=== PATIENT | female | born 1940 | race Asian ===

== ENCOUNTER 2018-07-17 16:44 | Inpatient (IN) | payer OTHER ==
--- NOTE | 2018-07-17 17:50 | RAD REPORT ---
EXAM DESCRIPTION: Alex Single View07/17/2018 5:43 pm CLINICAL HISTORY: COUGH COMPARISON: 2010 FINDINGS: The lungs appear clear of acute infiltrate. The heart is normal size IMPRESSION: No acute abnormalities displayed
[2018-07-17 18:18] LABS: Protime INR 0.91
[2018-07-17] MEDS ORDERED: FENTANYL CITR 100 MCG/2 ML ONE (18:30)
[2018-07-17] MEDS ORDERED: ONDANSETRON 4 MG/2 ML VIAL ONE ×2 (18:30→18:32)
[2018-07-17] MEDS ORDERED: KETOROLAC 30 MG/ML INJ ONE (18:30)
[2018-07-17 18:33] LABS: Absolute Lymphocytes (CBC) 2.1 K/uL (0.7-4.9); Absolute Monocytes 0.6 K/uL (0.1-1.3); Absolute Neutrophil 3.7 K/uL (1.8-8.0); Basophils % 0.9 % (0-1.3); Eosinophils % 9.9 % (0-4.4); Hematocrit 45.6 % (36.0-45.0); Lymphocytes % 29.5 % (15.3-44.8); MCH 30.2 pg (27.0-35.0); MCV 90.9 fL (80-100); MPV 8.5 fL (7.6-11.3); Monocytes % 8.5 % (3.3-12.3); RBC Red Blood Cell Count 5.02 M/uL (3.86-4.86)
--- NOTE | 2018-07-17 18:38 | RAD REPORT ---
EXAM DESCRIPTION: RAD - Shoulder Left 2 View - 07/17/2018 6:27 pm CLINICAL HISTORY: Left shoulder pain FINDINGS: No fracture or dislocation is seen. The bones are osteoporotic. Moderate osteoarthritis involves the acromioclavicular joint consisting of osteophytes and joint spac e narrowing
[2018-07-17 18:41] LABS: ALT/SGPT 18 U/L (12-78); AST/SGOT 18 U/L (15-37); Albumin 3.4 g/dL (3.4-5.0); Alkaline Phosphatase 68 U/L (45-117); BUN Blood Urea Nitrogen 16 mg/dL (7-18); Bicarbonate 29 mmol/L (21-32); Bilirubin Direct < 0.1 mg/dL (0-0.2); Bilirubin Total 0.4 mg/dL (0.2-1.0); CKMB Creatine Kinase MB 1.2 ng/mL (0.3-3.6); Creatine Phosphokinase 80 U/L (26-192); Glucose Level 144 mg/dL (74-106); Lipase 231 U/L (73-393); NT PRO-BNP 272 pg/mL (<450); Potassium 3.7 mmol/L (3.5-5.1); Protein, Total 7.3 g/dL (6.4-8.2); Sodium Level 143 mmol/L (136-145); Troponin (Emerg Dept Use Only) 0.08 ng/mL (0.0-0.045)
[2018-07-17] MEDS ORDERED: HYDRALAZINE HCL 10 MG TABLET ONE (18:55)
[2018-07-17] MEDS ORDERED: HYDRALAZINE HCL 20 MG/ML VIAL ONE (18:55)
--- NOTE | 2018-07-17 19:07 | ER ---
Nurse's Notes [facility] Name: Nyla Hernandez Age: 77 yrs Sex: Female : 1940 Arrival Date: 07/17/2018 Time: 16:47 Bed 24 Private MD: Nigel Beyer V Diagnosis: Essential (primary) hypertension;Pain in left shoulder Presentation: 07/17 16:58 Presenting complaint: Patient states: She has been having pain in her left shoulder for aj1 the past 2 weeks. States that she had a steroid injection Friday in that shoulder but it didn't help. She had a MRI done today, but Dr. Beyer's office closed before she could get the results. She checked her blood pressure at home and it was 190/96. Transition of care: patient was not received from another setting of care. Onset of symptoms was June 2018. Risk Assessment: Do you want to hurt yourself or someone else? Patient reports no desire to harm self or others. Initial Sepsis Screen: Does the patient meet any 2 criteria? No. Patient's initial sepsis screen is negative. Does the patient have a suspected source of infection? No. Patient's initial sepsis screen is negative. Care prior to arrival: None. 16:58 Method Of Arrival: Ambulatory aj1 16:58 Acuity: KADEN 4 aj1 Triage Assessment: 17:03 General: Appears in no apparent distress. comfortable, Behavior is calm, cooperative, aj1 appropriate for age. Pain: Complains of pain in anterior aspect of left shoulder and posterior aspect of left shoulder Pain currently is 10 out of 10 on a pain scale. Neuro: Level of Consciousness is awake, alert, obeys commands. Cardiovascular: Patient's skin is warm and dry. Respiratory: Airway is patent Respiratory effort is even, unlabored, Respiratory pattern is regular, symmetrical. Musculoskeletal: Range of motion: limited in left shoulder. Historical: - Allergies: 17:05 QUINOLONES; aj1 17:05 Ciprofloxacin; aj1 17:05 Levaquin; aj1 17:05 PHENOTHIAZINES; aj1 17:05 Flagyl; aj1 - Home Meds: 17:03 irbesartan 300 mg oral tab 1 tab once daily [Active]; spironolactone 25 mg Oral tab 1 aj1 tab once daily [Active]; pravastatin 40 mg oral tab 1 tab once daily [Active]; - PMHx: 17:03 Hypertension; Hyperlipidemia; aj1 - PSHx: 17:03 breast augmentation; foot surgery; aj1 - Immunization history:: Flu vaccine is up to date. - Social history:: Smoking status: Patient/guardian denies using tobacco. - Ebola Screening: : Patient denies travel to an Ebola-affected area in the 21 days before illness onset. - Family history:: not pertinent. Screenin:35 Abuse screen: Denies threats or abuse. Denies injuries from another. Nutritional aj screening: No deficits noted. Tuberculosis screening: No symptoms or risk factors identified. Fall Risk None identified. Assessment: 17:35 General: Appears in no apparent distress. comfortable, Behavior is calm, cooperative, aj appropriate for age. Pain: Complains of pain in anterior aspect of left shoulder and posterior aspect of left shoulder. Neuro: Level of Consciousness is awake, alert, obeys commands, Oriented to person, place, time, situation, Appropriate for age. Respiratory: Airway is patent Respiratory effort is even, unlabored, Respiratory pattern is regular, symmetrical. Derm: Skin is intact, is healthy with good turgor, Skin is pink, warm \T\ dry. normal. Musculoskeletal: Capillary refill < 3 seconds, in bilateral fingers. Range of motion: intact in all extremities, Reports pain in anterior aspect of left shoulder and posterior aspect of left shoulder. 19:15 Reassessment: Patient and/or family updated on plan of care and expected duration. Pain cr4 level reassessed. Patient is alert, oriented x 3, equal unlabored respirations, skin warm/dry/pink. Patient states feeling better. 20:07 Reassessment: Patient and/or family updated on plan of care and expected duration. Pain cr4 level reassessed. Pain: Complains of pain in chest and left elbow. Pain currently is 5 out of 10 on a pain scale. Quality of pain is described as aching. Cardiovascular: Heart tones S1 S2 Rhythm is regular. Respiratory: Reports shortness of breath at rest since coming back from bathroom. Breath sounds are clear. 20:30 Reassessment: Patient states feeling better. Patient states symptoms have improved. cr4 Respiratory: Denies shortness of breath at rest, on exertion, labored breathing. Vital Signs: 17:03 BP 188 / 62; Pulse 69; Resp 18; Temp 97.8; Pulse Ox 96% on R/A; Weight 59.87 kg (R); aj1 Height 4 ft. 10 in. (147.32 cm); Pain 10/10; 17:35 BP 173 / 72; Pulse 63; Resp 15; Pulse Ox 96% on R/A; aj 18:53 BP 211 / 78; Pulse 58; Resp 20; Pulse Ox 95% on R/A; aj 19:26 BP 216 / 82; Pulse 64; Resp 18; Pulse Ox 99% ; Pain 3/10; cr4 19:36 BP 190 / 72; Pulse 66; Resp 16; Pulse Ox 99% ; Pain 3/10; cr4 19:50 BP 168 / 64; Pulse 65; Resp 16; Pulse Ox 99% ; Pain 3/10; cr4 20:07 BP 188 / 64; Pulse 70; Resp 18; Pulse Ox 99% ; Pain 5/10; cr4 21:00 BP 143 / 64; Pulse 66; Resp 16; Temp 97.8; Pulse Ox 100% ; Pain 3/10; cr4 17:03 Body Mass Index 27.59 (59.87 kg, 147.32 cm) aj1 ED Course: 16:47 Patient arrived in ED. mr 16:47 Nigel Beyer MD is Private Physician. mr 17:01 Triage completed. aj1 17:03 Arm band placed on Patient placed in an exam room. aj1 17:28 Fatmata Salvaodr, RN is Primary Nurse. aj 17:30 John Cardoso MD is Attending Physician. yosef 17:35 Patient has correct armband on for positive identification. Placed in gown. Bed in low aj position. Call light in reach. Side rails up X 1. Adult w/ patient. 17:35 Pulse ox on. NIBP on. aj 17:43 XRAY Chest (1 view) In Process Unspecified. EDMS 17:46 EKG done, by senior technologist. dt2 17:59 Missed attempt(s): 22 gauge in right forearm. Bleeding controlled, band aid applied, aj catheter tip intact. 18:07 Inserted saline lock: 20 gauge in right antecubital area, using aseptic technique. rv 18:22 X-ray completed. Portable x-ray completed in exam room. Patient tolerated procedure az well. 18:24 Radiology exam delayed due to lab results not completed at this time. (BUN/Creatinine). vm2 18:27 Shoulder Left (2 View) XRAY In Process Unspecified. EDMS 18:[address] vr 19:04 CT Aorta for Dissection In Process Unspecified. EDMS 19:06 Nigel Beyer MD is Hospitalizing Provider. yosef 20:15 No provider procedures requiring assistance completed. Patient admitted, IV remains in cr4 place. Administered Medications: 18:33 Drug: TORadol 30 mg Route: IVP; Site: right antecubital; rv 18:33 Drug: fentaNYL (PF) 25 mcg Route: IVP; Site: right antecubital; rv 18:33 Drug: Zofran 4 mg Route: IVP; Site: right antecubital; rv 18:45 Drug: fentaNYL (PF) 25 mcg Route: IVP; Site: right antecubital; rv 19:24 Drug: hydrALAZINE 10 mg Route: PO; cr4 19:58 Follow up: Response: Blood pressure is lowered cr4 19:24 Drug: hydrALAZINE 10 mg Route: IV; Rate: per protocol; Site: right antecubital; cr4 19:57 Follow up: Response: Blood pressure is lowered cr4 19:25 Drug: Lovenox 1 mg/kg Route: Sub-Q; Site: abdomen; cr4 19:58 Follow up: Response: No adverse reaction cr4 19:57 Not Given (bp lower Dr. Hill ordered to hold for now.): Lopressor (metoprolol cr4 TARTRATE) 50 mg PO once 20:35 Drug: NS 0.9% 1000 ml Route: IV; Rate: 75 ml/hr; Site: right antecubital; cr4 21:36 Follow up: IV Status: Infusion continued upon transfer; IV Intake: 200ml cr4 Intake: 21:36 IV: 200ml; Total: 200ml. cr4 Outcome: 19:07 Decision to Hospitalize by Provider. yosef 21:15 Patient left the ED. cr4 21:15 Admitted to Tele accompanied by nurse, family with patient, via wheelchair, room 421, cr4 with chart, Report called to Alfredo 21:15 Condition: improved 21:15 Instructed on the need for admit. Signatures: Dispatcher [employer] EDKayla Nicole RN RN Fatmata Mo RN RN aj Anderson, Corey, MD MD cha Rivera Hannah mr Jeremy, Rita, RN RN cr4 Wei, Leatha Patel2 Vero Torre2 Bipin Duong, BLAS RN Heather Bhat
--- NOTE | 2018-07-17 19:07 | EDPHYS ---
Physician Documentation [facility] Name: Nyla Hernandez Age: 77 yrs Sex: Female : 1940 Arrival Date: 07/17/2018 Time: 16:47 Bed 24 Private MD: Nigel Beyer V ED Physician Jhon Cardoso HPI: 07/17 18:01 This 77 yrs old Female presents to ER via Ambulatory with complaints of High yosef Blood Pressure, Shoulder Pain. 18:01 The patient has elevated blood pressure and discovered this at home. Onset: The yosef symptoms/episode began/occurred 14 day(s) ago. Modifying factors: The symptoms are aggravated by activity, movement, The symptoms are alleviated by remaining still. Associated signs and symptoms: The patient has no apparent associated signs or symptoms. Severity of symptoms: At its worst the blood pressure was mild, moderate. The patient has not experienced similar symptoms in the past. Historical: - Allergies: 17:05 QUINOLONES; aj1 17:05 Ciprofloxacin; aj1 17:05 Levaquin; aj1 17:05 PHENOTHIAZINES; aj1 17:05 Flagyl; aj1 - Home Meds: 17:03 irbesartan 300 mg oral tab 1 tab once daily [Active]; spironolactone 25 mg Oral tab 1 aj1 tab once daily [Active]; pravastatin 40 mg oral tab 1 tab once daily [Active]; - PMHx: 17:03 Hypertension; Hyperlipidemia; aj1 - PSHx: 17:03 breast augmentation; foot surgery; aj1 - Immunization history:: Flu vaccine is up to date. - Social history:: Smoking status: Patient/guardian denies using tobacco. - Ebola Screening: : Patient denies travel to an Ebola-affected area in the 21 days before illness onset. - Family history:: not pertinent. ROS: 18:01 Constitutional: Negative for fever, chills, and weight loss, Eyes: Negative for injury, yosef pain, redness, and discharge, ENT: Negative for injury, pain, and discharge, Neck: Negative for injury, pain, and swelling, Cardiovascular: Negative for chest pain, palpitations, and edema, Respiratory: Negative for shortness of breath, cough, wheezing, and pleuritic chest pain, Abdomen/GI: Negative for abdominal pain, nausea, vomiting, diarrhea, and constipation, Back: Negative for injury and pain, : Negative for injury, bleeding, discharge, and swelling, Skin: Negative for injury, rash, and discoloration, Neuro: Negative for headache, weakness, numbness, tingling, and seizure. 18:01 MS/extremity: Positive for decreased range of motion, pain, tenderness, of the back and chest. Exam: 18:01 Constitutional: This is a well developed, well nourished patient who is awake, alert, yosef and in no acute distress. Head/Face: Normocephalic, atraumatic. Eyes: Pupils equal round and reactive to light, extra-ocular motions intact. Lids and lashes normal. Conjunctiva and sclera are non-icteric and not injected. Cornea within normal limits. Periorbital areas with no swelling, redness, or edema. ENT: Nares patent. No nasal discharge, no septal abnormalities noted. Tympanic membranes are normal and external auditory canals are clear. Oropharynx with no redness, swelling, or masses, exudates, or evidence of obstruction, uvula midline. Mucous membranes moist. Neck: Trachea midline, no thyromegaly or masses palpated, and no cervical lymphadenopathy. Supple, full range of motion without nuchal rigidity, or vertebral point tenderness. No Meningismus. Chest/axilla: Normal chest wall appearance and motion. Nontender with no deformity. No lesions are appreciated. Cardiovascular: Regular rate and rhythm with a normal S1 and S2. No gallops, murmurs, or rubs. Normal PMI, no JVD. No pulse deficits. Respiratory: Lungs have equal breath sounds bilaterally, clear to auscultation and percussion. No rales, rhonchi or wheezes noted. No increased work of breathing, no retractions or nasal flaring. Abdomen/GI: Soft, non-tender, with normal bowel sounds. No distension or tympany. No guarding or rebound. No evidence of tenderness throughout. Back: No spinal tenderness. No costovertebral tenderness. Full range of motion. Female : Normal external genitalia. Skin: Warm, dry with normal turgor. Normal color with no rashes, no lesions, and no evidence of cellulitis. Neuro: Awake and alert, GCS 15, oriented to person, place, time, and situation. Cranial nerves II-XII grossly intact. Motor strength 5/5 in all extremities. Sensory grossly intact. Cerebellar exam normal. Normal gait. Psych: Awake, alert, with orientation to person, place and time. Behavior, mood, and affect are within normal limits. 18:01 Musculoskeletal/extremity: Extremities: ROM: limited active range of motion, limited passive range of motion, Circulation is intact in all extremities. Compartment Syndrome exam of affected extremity: is normal. Joints: the left shoulder displays limited range of motion, painful range of motion, tenderness, DVT Exam: No signs of deep vein thrombosis. no pain, no swelling, no tenderness, negative Homans' sign noted on exam, no appreciated bluish discoloration, no erythema, no increased warmth. Vital Signs: 17:03 BP 188 / 62; Pulse 69; Resp 18; Temp 97.8; Pulse Ox 96% on R/A; Weight 59.87 kg (R); aj1 Height 4 ft. 10 in. (147.32 cm); Pain 10/10; 17:35 BP 173 / 72; Pulse 63; Resp 15; Pulse Ox 96% on R/A; aj 18:53 BP 211 / 78; Pulse 58; Resp 20; Pulse Ox 95% on R/A; aj 19:26 BP 216 / 82; Pulse 64; Resp 18; Pulse Ox 99% ; Pain 3/10; cr4 19:36 BP 190 / 72; Pulse 66; Resp 16; Pulse Ox 99% ; Pain 3/10; cr4 19:50 BP 168 / 64; Pulse 65; Resp 16; Pulse Ox 99% ; Pain 3/10; cr4 20:07 BP 188 / 64; Pulse 70; Resp 18; Pulse Ox 99% ; Pain 5/10; cr4 21:00 BP 143 / 64; Pulse 66; Resp 16; Temp 97.8; Pulse Ox 100% ; Pain 3/10; cr4 17:03 Body Mass Index 27.59 (59.87 kg, 147.32 cm) aj1 MDM: 17:30 Patient medically screened. [facility] 18:01 Data reviewed: vital signs, nurses notes, lab test result(s), EKG, radiologic studies, [facility] CT scan, plain films. 07/17 17: Order name: Basic Metabolic Panel; Complete Time: 19:00 [facility] 07/17 17: Order name: CBC with Diff; Complete Time: :00 [facility] 07/17 17:31 Order name: Ckmb; Complete Time: 19:00 [facility] 07/17 17:31 Order name: CPK; Complete Time: 19:00 [facility] 07/17 17:31 Order name: LFT's; Complete Time: 19:00 [facility] 07/17 17:31 Order name: Magnesium; Complete Time: 19:00 [facility] 07/17 17:31 Order name: NT PRO-BNP; Complete Time: 19:00 [facility] 07/17 17:31 Order name: PT-INR; Complete Time: 19:00 [facility] 07/17 17:31 Order name: Ptt, Activated; Complete Time: 19:00 [facility] 07/17 17:31 Order name: Troponin (emerg Dept Use Only); Complete Time: 19:00 [facility] 07/17 17:31 Order name: Lipase; Complete Time: 19:00 [facility] 07/17 17:31 Order name: Urine Culture [facility] 07/17 19:16 Order name: Basic Metabolic Panel [facility] 07/17 19:16 Order name: Basic Metabolic Panel [facility] 07/17 17:31 Order name: XRAY Chest (1 view); Complete Time: 19:00 [facility] 07/17 18:01 Order name: Shoulder Left (2 View) XRAY; Complete Time: 19:00 [facility] 07/17 18:01 Order name: CT Aorta for Dissection [facility] 07/17 19:16 Order name: Echo with Doppler [facility] 07/17 19:16 Order name: CBC with Automated Diff [facility] 07/17 19:16 Order name: CBC with Automated Diff [facility] 07/17 19:16 Order name: Troponin I [facility] 07/17 19:16 Order name: Troponin I [facility] 07/17 19:16 Order name: Troponin I [facility] 07/17 19:34 Order name: Urine Dipstick--Ancillary (enter results) [facility] 07/17 20:04 Order name: Urine Dipstick-Ancillary [facility] 07/17 17:31 Order name: EKG; Complete Time: 17:32 [facility] 07/17 17:31 Order name: Cardiac monitoring; Complete Time: 21:38 [facility] 07/17 17:31 Order name: EKG - Nurse/Tech; Complete Time: 21:37 [facility] 07/17 17:31 Order name: IV Saline Lock; Complete Time: 21:37 [facility] 07/17 17:31 Order name: Labs collected and sent; Complete Time: 21:37 [facility] 07/17 17:31 Order name: O2 Per Protocol; Complete Time: 21:37 [facility] 07/17 17:31 Order name: O2 Sat Monitoring; Complete Time: 21:37 [facility] 07/17 17:31 Order name: Urine Dipstick-Ancillary (obtain specimen); Complete Time: 21:38 [facility] 07/17 19:16 Order name: CONS Physician Consult [facility] 07/17 19:16 Order name: CONS Physician Consult [facility] 07/17 19:16 Order name: Regular EDMS 07/17 19:16 Order name: EKG Electrocardiogram EDMS 07/17 19:16 Order name: EKG Electrocardiogram EDMS 07/17 19:16 Order name: EKG Electrocardiogram EDMS 07/17 19:16 Order name: EKG Electrocardiogram EDMS Administered Medications: 18:33 Drug: TORadol 30 mg Route: IVP; Site: right antecubital; rv 18:33 Drug: fentaNYL (PF) 25 mcg Route: IVP; Site: right antecubital; rv 18:33 Drug: Zofran 4 mg Route: IVP; Site: right antecubital; rv 18:45 Drug: fentaNYL (PF) 25 mcg Route: IVP; Site: right antecubital; rv 19:24 Drug: hydrALAZINE 10 mg Route: PO; cr4 19:58 Follow up: Response: Blood pressure is lowered cr4 19:24 Drug: hydrALAZINE 10 mg Route: IV; Rate: per protocol; Site: right antecubital; cr4 19:57 Follow up: Response: Blood pressure is lowered cr4 19:25 Drug: Lovenox 1 mg/kg Route: Sub-Q; Site: abdomen; cr4 19:58 Follow up: Response: No adverse reaction cr4 19:57 Not Given (bp lower Dr. Hill ordered to hold for now.): Lopressor (metoprolol cr4 TARTRATE) 50 mg PO once 20:35 Drug: NS 0.9% 1000 ml Route: IV; Rate: 75 ml/hr; Site: right antecubital; cr4 21:36 Follow up: IV Status: Infusion continued upon transfer; IV Intake: 200ml cr4 Disposition: 07/17/18 19:07 Hospitalization ordered by Nigel Beyer for Observation. Preliminary diagnosis are Essential (primary) hypertension, Pain in left shoulder. - Bed requested for Telemetry/MedSurg (Inpatient). - Status is Observation. cr4 - Condition is Fair. - Problem is new. - Symptoms have improved. UTI on Admission? No Signatures: Dispatcher [employer] EDKayla Nciole, RN RN aj1 Garima Corral RN RN Fatmata Tineo, RN RN John Brown MD MD cha Ruiz, Claudia, RN RN cr4 Bipin Duong, RN RN rv Corrections: (The following items were deleted from the chart) 19:01 18:01 Sling ordered. [facility] 19:53 19:07 Hospitalization Ordered by Nigel Beyer MD for Observation. Preliminary diagnosis mw is Essential (primary) hypertension; Pain in left shoulder. Bed requested for Telemetry/MedSurg (Inpatient). Status is Observation. Condition is Fair. Problem is new. Symptoms have improved. UTI on Admission? No. [facility] 21:15 19:53 07/17/2018 19:07 Hospitalization Ordered by Nigel Beyer MD for Observation. cr4 Preliminary diagnosis is Essential (primary) hypertension; Pain in left shoulder. Bed requested for Telemetry/MedSurg (Inpatient). Status is Observation. Condition is Fair. Problem is new. Symptoms have improved. UTI on Admission? No. mw
[2018-07-17] MEDS ORDERED: ONDANSETRON 4 MG/2 ML VIAL IV PRN (19:11)
[2018-07-17] MEDS ORDERED: ACETAMINOPHEN 500 MG TAB PO PRN (19:11)
[2018-07-17] MEDS ORDERED: MORPHINE 4 MG/ML SYR IV PRN (19:11)
[2018-07-17] MEDS ORDERED: METOPROLOL TAR 50 MG TAB ONE (19:14)
[2018-07-17] MEDS ORDERED: ENOXAPARIN 60 MG/0.6 ML SQ ONE (19:15)
--- NOTE | 2018-07-17 19:34 | RAD REPORT ---
EXAM DESCRIPTION: CT - Angio Aorta For Dissection - 07/17/2018 7:04 pm CLINICAL HISTORY: Chest and abdominal pain. Hypertension COMPARISON: Abdomen Pelvis W Contrast dated 03/11/2018; Chest Single View dated 07/17/2018 TECHNIQUE: Computed tomography angiography of the chest, abdomen pelvis were obtained. 100 cc Isovue 370 was administered intravenously. Coronal and sagittal reconstruction were performed. MIP 3D reconstruction was performed All CT scans are performed using dose optimization technique as appropriate and may include automated exposure control or mA/KV adjustment according to patient size. FINDINGS: An aortic dissection is not seen. An aortic aneurysm is not displayed. Mild to moderate t hrombus is present within the aortic arch. The celiac, SMA and MONICA are patent . A 2 centimeter right upper lobe opacities present. A pericardial effusion is not seen. A pleural effu jesse is not noted. The liver,spleen, pancreas adrenals kidneys demonstrate no significant abnormality. Spondylosis involves the lumbar spine resulting in spinal stenosis. Mild anterior subluxation of L4 o n L5 is present. A small right inguinal hernia contains fat. A gastric band is in place. Mild esophageal distention is noted. There no evidence diverticulitis. A trace amount of ascites is present within the pelvis IMPRESSION: Negative for an aortic dissection. 2 centimeter right upper lobe opacity may represent pneumonia or neoplasm. It is recommended that the patient have a followup CT chest in 1 month to assess stability/resolution
[2018-07-17 20:04] LABS: Urine Blood NEGATIVE (NEG); Urine Glucose NEGATIVE (NEG); Urine Protein NEGATIVE (NEG)
[2018-07-17] MEDS ORDERED: NA CHLORIDE 0.9% 1,000 ML ONE (20:39)
[2018-07-17] MEDS: HYDRALAZINE HCL 10 MG TABLET PO SCH (21:00)
[2018-07-17] MEDS ORDERED: ENOXAPARIN 60 MG/0.6 ML SQ SCH (21:00)
[2018-07-18 02:41] LABS: Absolute Lymphocytes (CBC) 2.1 K/uL (0.7-4.9); Absolute Monocytes 0.5 K/uL (0.1-1.3); Absolute Neutrophil 5.2 K/uL (1.8-8.0); Basophils % 0.9 % (0-1.3); Eosinophils % 5.4 % (0-4.4); Hematocrit 41.4 % (36.0-45.0); Lymphocytes % 25.1 % (15.3-44.8); MCH 31.1 pg (27.0-35.0); MCV 91.1 fL (80-100); MPV 8.8 fL (7.6-11.3); Monocytes % 6.2 % (3.3-12.3); RBC Red Blood Cell Count 4.55 M/uL (3.86-4.86)
[2018-07-18 03:00] LABS: Potassium 4.1 mmol/L (3.5-5.1)
[2018-07-18] MEDS ORDERED: METOPROLOL TAR 25 MG TAB PO SCH (06:00)
--- NOTE | 2018-07-18 06:06 | EKG ---
Test Date: 2018-07-17 Test Time: 17:40:33 Business Administration Instructor: LEONARD MEASUREMENT RESULTS: Intervals: Rate: 67 VA: 138 QRSD: 70 QT: 416 QTc: 439 [place]: P: 64 VA: 138 QRS: 70 T: 84 INTERPRETIVE STATEMENTS: Sinus rhythm with premature atrial complexes Otherwise normal ECG Compared to ECG 06/06/2011 05:27:56 Atrial premature complex(es) now present Sinus bradycardia no longer present Electronically Signed On 07-18-18 06:06:01 CDT by Fabio Cuello
--- NOTE | 2018-07-18 07:59 | RAD REPORT ---
EXAM DESCRIPTION: RAD - Chest Single View - 07/18/2018 6:03 am CLINICAL HISTORY: Chest Pain<Reason For Exam> COMPARISON: Chest Single View dated 07/17/2018; CHEST PA AND LAT 2 VIEW dated 11/29/2013; CHEST SINGLE VIEW dated 06/05/2011; CHEST SINGLE VIEW dated 06/05/2011<Comparisons> TECHNIQUE: AP portable chest image was obtained 0551 hours . FINDINGS: No new lung parenchymal process. Lung markings are accentuated slightly by shallow inspira tion. Heart and vasculature are normal. No measurable pleural effusion and no pneumothorax. No gross bony abnormality seen. No acute aortic findings suspected. IMPRESSION: No acute cardiopulmonary process. No new or progressive finding from prior day study.
[2018-07-18] MEDS ORDERED: SPIRONOLACTONE 25 MG TABLET PO SCH (09:00)
[2018-07-18] MEDS ORDERED: IRBESARTAN PO SCH (09:00)
[2018-07-18] MEDS ORDERED: ASPIRIN EC 81 MG TAB PO SCH (09:00)
[2018-07-18] MEDS ORDERED: ENOXAPARIN 60 MG/0.6 ML SQ SCH (09:00)
[2018-07-18] MEDS ORDERED: IRBESARTAN 150 MG TAB PO SCH (09:00)
[2018-07-18] MEDS: HYDRALAZINE HCL 10 MG TABLET PO SCH (09:37)
--- NOTE | 2018-07-18 11:21 | P.SSS ---
Patient History Date of Service: 07/18/18 Reason for admission: SHOULDER PAIN History of Present Illness: LEFT SHOULDER PAIN. SUDDEN, SEVERE. SHE LIFTS 100 LBS IN EXERCISES DAILY. SHE CAME TO OFFICE AFTER GYM. I HAD GIVEN HER STEROID INJECTION, ORDERED MRI. SHE ENDS UP IN ER SHE HAD TOO MUCH PAIN, BP WAS HIGH FROM IT. SHE IS MORE COMFORTABLE NOW. I AM GIVING HER TRMADOL, AND CLONIDINE PRN. SHE IS SEEN BY DR NESBITT. HER MILD HIGH TROPONIN DON'T CORRELATE WITH ANY CARDIAC SYMPTOMS. SHE IS STABLE IF OKAY WITH DR. NESBITT TO DC HER HOME. I WILL REFER HER TO [facility] FROM OFFICE. Allergies ciprofloxacin Allergy (Verified 07/17/18 22:06) Shortness of breath levofloxacin [From Levaquin] Allergy (Verified 07/17/18 22:06) Shortness of breath metronidazole [From Flagyl] Allergy (Verified 07/17/18 22:06) Shortness of breath Phenothiazines Allergy (Verified 07/17/18 22:06) Shortness of breath Quinolones Allergy (Verified 07/17/18 22:06) Shortness of breath Home Medications: Irbesartan [Avapro] 1 tab PO DAILY 07/17/18 Pravastatin Sodium 1 tab PO BEDTIME 07/17/18 Spironolactone 1 tab PO DAILY 07/17/18 Tramadol HCl [Ultram] 50 mg PO Q6H #50 tablet 07/18/18 cloNIDine HCl [Clonidine HCl] 0.1 mg PO Q2H PRN #50 tablet 07/18/18 - Past Medical/Surgical History Has patient received pneumonia vaccine in the past: Yes Diabetic: Yes -: HTN -: Hyperlipidemia -: DM -: Asthma -: Breast augmentation -: Foot surgery -: Cardiac Stent x 2 -: Cholecystectomy -: Appendectomy -: Lap Band - Family History Mother -: Heart disease, Diabetes, Cancer Notes: Colon Cancer Father -: Heart disease Sister -: Heart disease, Diabetes, Cancer Brother -: Heart disease - Social History Smoking Status: Never smoker Alcohol use: No CD- Drugs: No Caffeine use: Yes Place of Residence: Home Review of Systems 10-point ROS is otherwise unremarkable Musculoskeletal: Shoulder Pain, As per HPI Physical Examination - Vital Signs Temperature: 98.0 F Blood Pressure: 161/64 Pulse: 66 Respirations: 18 Pulse Ox (%): 98 - Physical Exam General: Alert, Mild distress HEENT: Atraumatic, PERRLA, Mucous membr. moist/pink, EOMI, Sclerae nonicteric Neck: Supple, 2+ carotid pulse no bruit, No LAD, Without JVD or thyroid abnormality Respiratory: Clear to auscultation bilaterally, Normal air movement Cardiovascular: Regular rate/rhythm, Normal S1 S2 Gastrointestinal: Normal bowel sounds, No tenderness Musculoskeletal: No tenderness, Other (SHOULDER MOBILITY IS SOMEWHAT RESTRICTED. ) Integumentary: No rashes Neurological: Normal gait, Normal speech, Normal strength at 5/5 x4 extr, Normal tone, Normal affect Lymphatics: No axilla or inguinal lymphadenopathy - Studies Laboratory Data (last 24 hrs) 07/17/18 17:55: PT 10.7, INR 0.91, APTT 25.6 07/17/18 17:55: WBC 7.2, Hgb 15.2 H, Hct 45.6 H, Plt Count 246 07/17/18 17:55: Sodium 143, Potassium 3.7, BUN 16, Creatinine 1.00, Glucose 144 H, Magnesium 2.0, Total Bilirubin 0.4, AST 18, ALT 18, Alkaline Phosphatase 68, Lipase 231 - Diagnosis (Problem(s)) (1) Left shoulder pain Current Visit: Yes Status: Acute Plan: PER HPI. Qualifiers: Chronicity: acute Qualified Code(s): M25.512 - Pain in left shoulder (2) HTN (hypertension) Current Visit: Yes Status: Chronic Plan: PER HPI (3) Diabetes Current Visit: Yes Status: Chronic Plan: GLUCOSE WENT HIGH AFTER STEROID INJECTION. Qualifiers: Diabetes mellitus type: type 2 - Disposition Disposition: ROUTINE DISCHARGE Condition: FAIR
[2018-07-18] MEDS ORDERED: ATORVASTATIN 10 MG TAB PO SCH (21:00)
--- NOTE | 2018-07-19 08:39 | EKG ---
Test Date: 2018-07-17 Test Time: 20:30:49 Transcribing Operators Supervisor: DNEIS MEASUREMENT RESULTS: Intervals: Rate: 68 MO: 136 QRSD: 70 QT: 436 QTc: 463 [place]: P: 47 MO: 136 QRS: 60 T: 70 INTERPRETIVE STATEMENTS: Normal sinus rhythm Normal ECG Compared to ECG 07/17/2018 17:40:33 Atrial premature complex(es) no longer present Electronically Signed On 07-19-18 08:36:54 CDT by Fabio Cuello
--- NOTE | 2018-07-19 10:56 | CON ---
Date of Consultation: 07/18/[address] Beyer's service on 07/17/2018. I saw the patient on 07/18/2018. Reason For Consultation: Atypical chest pain and hypertension. History Of Present Illness: Ms. Hernandez is a 77-year-old woman. Has a history of hypertension, dysli pidemia, coronary artery disease status post stent, came in with left arm pain that is worse when she moves it. Some left upper chest pain, but no nausea, vomiting, diaphoresis, PND, orthopnea, pedal e pauly, palpitation, or syncope. Past Medical History: Includes hypertension, dyslipidemia, coronary artery disease. Allergies: SHE IS ALLERGIC TO CIPROFLOXACIN, FLAGYL, LEVAQUIN, AND PHENOTHIAZINE. Review of Systems: Negative. Social History: Negative. Family History: Negative. Medications: At home include Avapro, Pravachol, and Aldactone. Physical Examination: Vital Signs: Were noted to have a blood pressure of 211/78, sinus rhythm. HEENT: Negative. Neck: Supple with no bruit. Chest: Clear. Cardiac: Revealed a regular rhythm and rate with an S4 gallops. Abdomen: Benign. Extremities: Revealed no clubbing, cyanosis, or edema. Diagnostic Data: Showed a troponin of 0.08. 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 Ms. Finn daina just recently had a negative echo and Lexiscan in my office 6 months ago. Impression And Plan: 1.Atypical left arm pain, musculoskeletal. 2.Hypertension, poorly controlled. She is now on Aldactone, but also beta-blockers and hydralazine were added and her blood pressure is better controlled. 3.Dyslipidemia, well controlled on Pravachol. 4.History of coronary artery disease, status post stent. Negative recent workup in the last 6 month s. 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 She has a 2 cm vu ng mass that I will make sure to follow up on every 6 months or at least in 6 months and I will discu ss the case further and in that department with Dr. Beyer. From my standpoint, she can go home and I will see her in the office in the next 2 weeks. KYE/YESSY Voice ID: [id number] Report ID: [id number]
== END 2018-07-18 14:00 | disposition home or self-care (01) | DRG 556 ==
LOC: ER 16:44 → ERHOLD 19:09 → 4TH 20:40
PROVIDERS: ADMIT Internal Medicine; ATTEND Internal Medicine
DX: M25.512 Pain in left shoulder (principal); R07.89 Other chest pain; I10 Essential (primary) hypertension; E78.5 Hyperlipidemia, unspecified; I25.10 Atherosclerotic heart disease of native coronary artery without angina pectoris; E11.9 Type 2 diabetes mellitus without complications; Z95.5 Presence of coronary angioplasty implant and graft; Z88.1 Allergy status to other antibiotic agents; Z88.3 Allergy status to other anti-infective agents; Z88.8 Allergy status to other drugs, medicaments and biological substances
CPT/HCPCS: 36415; 71045; 71275; 74175; 80048; 80076; 81003; 82550; 82553; 83690; 83735; 83880; 84484; 85025; 85610; 85730; 87086; 87088; 93005; 96361; 96372; 96374; 96375; 99285; J0360; J1650; J2405; J3010; J7030; Q9967

== ENCOUNTER 2018-12-26 16:45 | Emergency (ER) | payer OTHER ==
--- NOTE | 2018-12-26 17:39 | RAD REPORT ---
EXAM DESCRIPTION: Alex Single View12/26/2018 5:33 pm CLINICAL HISTORY: Chest pain COMPARISON: March 2018 FINDINGS: The lungs appear clear of acute infiltrate. The heart is normal size IMPRESSION: No acute abnormalities displayed
[2018-12-26 17:42] LABS: Absolute Lymphocytes (CBC) 2.4 K/uL (0.7-4.9); Absolute Monocytes 0.6 K/uL (0.1-1.3); Absolute Neutrophil 5.3 K/uL (1.8-8.0); Basophils % 0.6 % (0-1.3); Eosinophils % 6.7 % (0-4.4); Hematocrit 40.3 % (36.0-45.0); Lymphocytes % 27.1 % (15.3-44.8); MPV 8.1 fL (7.6-11.3)
[2018-12-26 17:44] LABS: Potassium 3.3 mmol/L (3.5-5.1); Troponin (Emerg Dept Use Only) 0.04 ng/mL (0.0-0.045)
[2018-12-26] MEDS ORDERED: ASPIRIN 81 MG CHEWABLE TABLET ONE (18:46)
--- NOTE | 2018-12-26 20:58 | EDPHYS ---
Physician Documentation [facility] Name: Nyla Hernandez Age: 78 yrs Sex: Female : 1940 Arrival Date: 12/26/2018 Time: 16:47 Bed 26 Private MD: Nigel Beyer V ED Physician Sukhwinder De Los Santos HPI: 12/26 17:09 This 78 yrs old Female presents to ER via Ambulatory with complaints of Chest rn Pain > 30 y/o. 17:09 The patient or guardian reports chest pain that is located primarily in the anterior rn chest wall, left. Onset: just prior to arrival. The pain radiates to The chest pain is described as aching. Duration: The patient or guardian reports a single episode, that lasted 10 minute(s). Modifying factors: The symptoms are alleviated by nothing. the symptoms are aggravated by nothing. Severity of pain: At its worst the pain was moderate in the emergency department the pain has resolved. The patient has experienced similar episodes in the past. Reports left sided chest pain, radiates to jaw and neck, reports somewhat similar to chest pains in past that ended up being heart attack. Last stent years ago, but states had normal stress this past year. Reports nausea with chest pain. No sob, + chronic cough. . Historical: - Allergies: 16:54 Ciprofloxacin; la1 16:54 Flagyl; la1 16:54 Levaquin; la1 16:54 PHENOTHIAZINES; la1 16:54 QUINOLONES; la1 - PMHx: 16:54 Hyperlipidemia; Hypertension; la1 - Immunization history:: Adult Immunizations up to date. - Social history:: Smoking status: Patient/guardian denies using tobacco. - Ebola Screening: : No symptoms or risks identified at this time. - Family history:: not pertinent. - Hospitalizations: : No recent hospitalization is reported. ROS: 17:09 Constitutional: Negative for fever, chills, and weight loss, Eyes: Negative for injury, rn pain, redness, and discharge, Neck: Negative for injury, pain, and swelling, Cardiovascular: + chest pain Respiratory: Negative for shortness of breath, cough, wheezing, and pleuritic chest pain, Abdomen/GI: Negative for abdominal pain, diarrhea, and constipation, MS/Extremity: Negative for injury and deformity, Skin: Negative for injury, rash, and discoloration, Neuro: Negative for headache, weakness, numbness, tingling, and seizure. Exam: 17:09 Constitutional: This is a well developed, well nourished patient who is awake, alert, rn and in no acute distress. Head/Face: Normocephalic, atraumatic. Eyes: Pupils equal round and reactive to light, extra-ocular motions intact. Lids and lashes normal. Conjunctiva and sclera are non-icteric and not injected. Cornea within normal limits. Periorbital areas with no swelling, redness, or edema. Cardiovascular: Regular rate and rhythm. No pulse deficits. Respiratory: Lungs have equal breath sounds bilaterally, clear to auscultation Abdomen/GI: Soft, non-tender. No evidence of tenderness throughout. MS/ Extremity: Pulses equal, no cyanosis. Neurovascular intact. Full, normal range of motion. Equal circumference. Neuro: Awake and alert, GCS 15, oriented to person, place, time, and situation. Cranial nerves II-XII grossly intact. Motor strength 5/5 in all extremities. Sensory grossly intact. Cerebellar exam normal. 17:24 ECG was reviewed by the Attending Physician. rn Vital Signs: 16:54 BP 156 / 62; Pulse 81; Resp 16; Pulse Ox 98% ; Weight 56.7 kg; Height 4 ft. 10 in. la1 (147.32 cm); 18:13 BP 134 / 60; Pulse 66; Resp 18; Pulse Ox 99% on R/A; aj1 19:12 BP 124 / 62; Pulse 75; Resp 18; Pulse Ox 99% on R/A; aj1 20:16 BP 124 / 61; Pulse 66; Resp 18; Pulse Ox 99% on R/A; aj1 20:30 BP 131 / 61; Pulse 68; Resp 17 S; Pulse Ox 100% on R/A; Pain 0/10; rv 20:45 BP 132 / 58; Pulse 65; Resp 17 S; Pulse Ox 99% on R/A; Pain 0/10; rv 16:54 Body Mass Index 26.12 (56.70 kg, 147.32 cm) la1 MDM: 16:52 Patient medically screened. rn 18:18 Differential diagnosis: acute myocardial infarction, acute pericarditis, anxiety, rn coronary artery disease chest wall pain, costochondritis, esophagitis, gastritis, pleurisy, pneumothorax. Data reviewed: vital signs, nurses notes. 18:19 Counseling: I had a detailed discussion with the patient and/or guardian regarding: the rn historical points, exam findings, and any diagnostic results supporting the discharge/admit diagnosis, lab results, the need for further work-up and treatment in the hospital. ED course: Spoke with patient, I recommended admission for cardiac evaluation, patient does not want to be admitted, wants to go home, talked her into atleast repeat trop and EKG. Will sign out to Dr. Stout pending studies. 19:26 ED course: Report rec'd from Dr. De Los Santos. Awaiting 2030 trop and EKG.. snw 20:57 Counseling: I had a detailed discussion with the patient and/or guardian regarding: snw attempted again to convince patient to stay for observation. Pt declined. Troponin remains 0.04 and EKG is unchanged from prior. Pt agrees to come back for any problems, worsening symptoms. 12/26 17:05 Order name: CBC with Diff; Complete Time: 17:48 rn 12/26 17:05 Order name: Basic Metabolic Panel; Complete Time: 17:48 rn 12/26 17:05 Order name: Troponin (emerg Dept Use Only); Complete Time: 17:48 rn 12/26 17:05 Order name: XRAY Chest (1 view); Complete Time: 17:48 rn 12/26 18:19 Order name: Troponin (emerg Dept Use Only): Draw at 2030; Complete Time: 20:53 rn 12/26 17:05 Order name: IV Start; Complete Time: 18:15 rn / 17:05 Order name: EKG; Complete Time: 17:06 rn 12/26 17:05 Order name: EKG - Nurse/Tech; Complete Time: 18:15 rn / 18:19 Order name: EKG - Nurse/Tech: perform at 2030; Complete Time: 20:27 rn EC:24 Rate is 71 beats/min. Rhythm is regular. QRS [place] is Normal. MS interval is normal. QRS rn interval is normal. QT interval is normal. No Q waves. T waves are Normal. No ST changes noted. Clinical impression: Normal ECG. Interpreted by me. Administered Medications: 18:38 Drug: Aspirin Chewable Tablet 324 mg Route: PO; aj1 Disposition: 12/27 07:22 Co-signature as Attending Physician, Sukhwinder De Los Santos MD. rn Disposition: 12/26/18 20:57 Discharged to Home. Impression: Chest pain, unspecified. - Condition is Stable. - Discharge Instructions: Nonspecific Chest Pain, Aspirin and Your Heart, Chest Pain Observation. - Medication Reconciliation Form, Thank You Letter, Antibiotic Education, Prescription Opioid Use form. - Follow up: Nigel Beyer MD; When: 1 - 2 days; Reason: Recheck today's complaints, Continuance of care, Re-evaluation by your physician. Follow up: Fabio Cuello MD; When: 1 - 2 days; Reason: Recheck today's complaints, Continuance of care, Re-evaluation by your physician. Follow up: Emergency Department; When: As needed; Reason: Worsening of condition. Signatures: Dispatcher [employer] EDKayla Nicole, RN RN aj1 Brittany Doty, MARINE PIPEFITTER HELPER-C MARINE PIPEFITTER HELPER-Csnw Sukhwinder De Los Santos MD MD rn Attema, Lee RN RN la1 Bipin Duong RN RN rv Corrections: (The following items were deleted from the chart) 12/26 21:09 20:57 12/26/2018 20:57 Discharged to Home. Impression: Chest pain, unspecified. rv Condition is Stable. Forms are Medication Reconciliation Form, Thank You Letter, Antibiotic Education, Prescription Opioid Use. Follow up: Nigel Beyer; When: 1 - 2 days; Reason: Recheck today's complaints, Continuance of care, Re-evaluation by your physician. Follow up: Fabio Cuello; When: 1 - 2 days; Reason: Recheck today's complaints, Continuance of care, Re-evaluation by your physician. Follow up: Emergency Department; When: As needed; Reason: Worsening of condition. snw
--- NOTE | 2018-12-26 20:58 | ER ---
Nurse's Notes [facility] Name: Nyla Hernandez Age: 78 yrs Sex: Female : 1940 Arrival Date: 12/26/2018 Time: 16:47 Bed 26 Private MD: Nigel Beyer V Diagnosis: Chest pain, unspecified Presentation: 12/26 16:56 Presenting complaint: Patient states: Chest pain radiating to left breast and jaw \E\. la1 Transition of care: patient was not received from another setting of care. Onset of symptoms was December 26, 2018. Risk Assessment: Do you want to hurt yourself or someone else? Patient reports no desire to harm self or others. Initial Sepsis Screen: Does the patient meet any 2 criteria? No. Patient's initial sepsis screen is negative. Does the patient have a suspected source of infection? No. Patient's initial sepsis screen is negative. Care prior to arrival: None. 16:56 Method Of Arrival: Ambulatory la1 16:56 Acuity: KADEN 2 la1 Historical: - Allergies: 16:54 Ciprofloxacin; la1 16:54 Flagyl; la1 16:54 Levaquin; la1 16:54 PHENOTHIAZINES; la1 16:54 QUINOLONES; la1 - PMHx: 16:54 Hyperlipidemia; Hypertension; la1 - Immunization history:: Adult Immunizations up to date. - Social history:: Smoking status: Patient/guardian denies using tobacco. - Ebola Screening: : No symptoms or risks identified at this time. - Family history:: not pertinent. - Hospitalizations: : No recent hospitalization is reported. Screenin:05 Abuse screen: Denies threats or abuse. Denies injuries from another. Nutritional aj1 screening: No deficits noted. Tuberculosis screening: No symptoms or risk factors identified. 20:55 Fall Risk None identified. rv Assessment: 17:05 General: Appears in no apparent distress. comfortable, Behavior is calm, cooperative, aj1 appropriate for age. Pain: Complains of pain in anterior aspect of left upper chest Pain radiates to neck Pain currently is 2 out of 10 on a pain scale. at worst was 7 out of 10 on a pain scale. Quality of pain is described as aching, Pain began this morning Is intermittent. Neuro: Level of Consciousness is awake, alert, obeys commands. Cardiovascular: Reports chest pain, Denies shortness of breath, Heart tones S1 S2 present Patient's skin is warm and dry. Rhythm is sinus rhythm. Respiratory: Airway is patent Respiratory effort is even, unlabored, Respiratory pattern is regular, symmetrical, Breath sounds are clear bilaterally. Denies shortness of breath. GI: No signs and/or symptoms were reported involving the gastrointestinal system. : No signs and/or symptoms were reported regarding the genitourinary system. EENT: No signs and/or symptoms were reported regarding the EENT system. Derm: No signs and/or symptoms reported regarding the dermatologic system. Skin is pink, warm \T\ dry. normal. Musculoskeletal: No signs and/or symptoms reported regarding the musculoskeletal system. Circulation, motion, and sensation intact. 18:13 Reassessment: Patient appears in no apparent distress at this time. No changes from aj1 previously documented assessment. Patient and/or family updated on plan of care and expected duration. Pain level reassessed. Patient is alert, oriented x 3, equal unlabored respirations, skin warm/dry/pink. 19:11 Reassessment: Patient appears in no apparent distress at this time. No changes from aj1 previously documented assessment. Patient and/or family updated on plan of care and expected duration. Pain level reassessed. Patient is alert, oriented x 3, equal unlabored respirations, skin warm/dry/pink. 20:16 Reassessment: Patient and/or family updated on plan of care and expected duration. Pain aj1 level reassessed. General: Appears in no apparent distress. comfortable, Behavior is calm, cooperative, appropriate for age. Neuro: Level of Consciousness is awake, alert, obeys commands. Cardiovascular: Patient's skin is warm and dry. Respiratory: Airway is patent Respiratory effort is even, unlabored, Respiratory pattern is regular, symmetrical. Derm: Skin is pink, warm \T\ dry. normal. Musculoskeletal: Circulation, motion, and sensation intact. 20:54 Reassessment: Patient appears in no apparent distress at this time. Patient and/or rv family updated on plan of care and expected duration. Pain level reassessed. Patient is alert, oriented x 3, equal unlabored respirations, skin warm/dry/pink. AWAITING RESULT OF REPEAT TROPONIN. Vital Signs: 16:54 BP 156 / 62; Pulse 81; Resp 16; Pulse Ox 98% ; Weight 56.7 kg; Height 4 ft. 10 in. la1 (147.32 cm); 18:13 BP 134 / 60; Pulse 66; Resp 18; Pulse Ox 99% on R/A; aj1 19:12 BP 124 / 62; Pulse 75; Resp 18; Pulse Ox 99% on R/A; aj1 20:16 BP 124 / 61; Pulse 66; Resp 18; Pulse Ox 99% on R/A; aj1 20:30 BP 131 / 61; Pulse 68; Resp 17 S; Pulse Ox 100% on R/A; Pain 0/10; rv 20:45 BP 132 / 58; Pulse 65; Resp 17 S; Pulse Ox 99% on R/A; Pain 0/10; rv 16:54 Body Mass Index 26.12 (56.70 kg, 147.32 cm) la1 ED Course: 16:47 Patient arrived in ED. sb2 16:48 Nigel Beyer MD is Private Physician. sb2 16:52 Sukhwinder De Los Santos MD is Attending Physician. rn 16:55 Kayla Damon, BLAS is Primary Nurse. aj1 16:55 Arm band placed on left wrist. la1 16:56 Triage completed. la1 17:05 Patient has correct armband on for positive identification. alarm security or surveillance monitor on. Pulse aj1 ox on. NIBP on. 17:05 No provider procedures requiring assistance completed. Patient maintains SpO2 aj1 saturation greater than 95% on room air. 17:34 XRAY Chest (1 view) In Process Unspecified. EDMS 19:26 Brittany Doty FNP-C [facility] snw 20:56 Nigel Beyer MD is Referral Physician. snw 20:56 Fabio Cuello MD is Referral Physician. snw 21:09 IV discontinued, bleeding controlled, No redness/swelling at site. Pressure dressing rv applied. Administered Medications: 18:38 Drug: Aspirin Chewable Tablet 324 mg Route: PO; aj1 Outcome: 20:57 Discharge ordered by . snw 21:08 Discharged to home ambulatory. rv 21:08 Condition: good 21:08 Discharge instructions given to patient, Instructed on discharge instructions, follow up and referral plans. Demonstrated understanding of instructions, follow-up care. 21:09 Patient left the ED. rv Signatures: Dispatcher [employer] EDMS Kayla aDmon, BLAS RN aj1 Brittany Doty, POSTAL SUPERVISOR-C POSTAL SUPERVISOR-Csnw Sukhwinder De Los Santos MD MD rn Attema, Lee, RN RN la1 Syl Gomez2 Bipin Duong RN RN rv Corrections: (The following items were deleted from the chart) 16:56 16:56 Acuity: KADEN 3 la1 [email or web address]
--- NOTE | 2018-12-27 10:54 | EKG ---
Test Date: 2018-12-26 Test Time: 16:58:03 Bmw Sales Consultant: KIRILL MEASUREMENT RESULTS: Intervals: Rate: 71 VA: 164 QRSD: 72 QT: 404 QTc: 439 [place]: P: 89 VA: 164 QRS: 76 T: 69 INTERPRETIVE STATEMENTS: Normal sinus rhythm Normal ECG Compared to ECG 07/17/2018 20:30:49 No significant changes Electronically Signed On 12-27-18 10:53:05 PLASTIC BATTERY ASSEMBLER by Donovan Mason
--- NOTE | 2018-12-27 10:54 | EKG ---
Test Date: 2018-12-26 Test Time: 20:29:09 Furniture Mechanic: KIRILL MEASUREMENT RESULTS: Intervals: Rate: 67 NE: 168 QRSD: 76 QT: 422 QTc: 445 [place]: P: 74 NE: 168 QRS: 70 T: 94 INTERPRETIVE STATEMENTS: Normal sinus rhythm Nonspecific T wave abnormality Abnormal ECG Compared to ECG 12/26/2018 16:58:03 T-wave abnormality now present Electronically Signed On 12-27-18 10:52:53 ROUTE SPECIALIST by Donovan Mason
== END 2018-12-26 21:09 | disposition home or self-care (01) ==
LOC: ER 16:45
DX: R07.9 Chest pain, unspecified (principal)
CPT/HCPCS: 36415; 71045; 80048; 84484; 85025; 93005; 99285

== ENCOUNTER 2023-08-27 12:54 | Day surgery (SDC) | payer OTHER ==
[2023-08-27 13:50] VITALS: BP 141/56; TEMP 98.2; O2SAT 99; BMI 28.4
[2023-08-27] MEDS ORDERED: Zoledronic Acid/Mannitol/Water 5 MG/100 ML INFUS.BOT IV ONE (14:00)
== END 2023-08-27 14:06 | disposition home or self-care (01) ==
LOC: DS 12:54
PROVIDERS: ATTEND Internal Medicine
DX: M81.0 Age-related osteoporosis without current pathological fracture (principal); R13.10 Dysphagia, unspecified
CPT/HCPCS: 96365; J3489